=== PATIENT | male | born 1940 | race Caucasian/White ===

== ENCOUNTER 2017-01-20 22:19 | Emergency (ER) | payer MEDICARE ==
[~2017-01-20] VITALS: Ht 170.2 cm; Wt 48.2 kg
[~2017-01-20 22:19] MED LIST: ALBU8.5H5 INH; ASPI-496 PO; ATOR40TA PO; CARV3.1212 PO; CEFD300C37 PO; CLOP75TA22 PO; DOXY100T PO; FLUT1DIS IH; FURO20TA3 PO; LEVO750T26 PO; MAGN500C PO; NICO1PAT4 TD; NICO1PAT5 TD; OXYC-302 PO; POTA10TA11 PO; POTA20TA6 PO; PRED50TA PO; PRED5TAB PO
[2017-01-20] MEDS ORDERED: SODIUM CHLORIDE 0.9% 1,000 ML IV ONE (22:24)
[2017-01-20] MEDS ORDERED: ALBUTEROL/IPRATROPIUM 2.5MG/0.5MG, 3 ML NPPB ONE (22:30)
[2017-01-20] MEDS ORDERED: ALBUTEROL/IPRATROPIUM 2.5MG/0.5MG, 3 ML NPPB PRN (22:30)
[2017-01-20] MEDS ORDERED: methylPREDNISolone SOD SUCC 125 MG/2 ML IVP ONE (22:30)
[2017-01-20] MEDS ORDERED: SODIUM CHLORIDE FLUSH 10ML SYR IVF ONE (22:30)
[2017-01-20] MEDS ORDERED: ALBUTEROL/IPRATROPIUM 2.5MG/0.5MG, 3 ML ONE (22:44)
[2017-01-20] MEDS ORDERED: methylPREDNISolone SOD SUCC 125 MG/2 ML ONE (22:56)
[2017-01-20 23:14] LABS: ASPARTATE AMINO TRANSFERASE 21 U/L (15-37); BLOOD UREA NITROGEN 27 mg/dL (7-18)
[2017-01-20 23:22] LABS: IS PT STATUS REG ER OR PRE ER? YES
[2017-01-20] MEDS ORDERED: ALBU6.7H PO (23:40)
[2017-01-20] MEDS ORDERED: MAGN400T36 PO (23:40)
[2017-01-21 00:31] VITALS: BP 129/71
== END 2017-01-21 00:34 | disposition home or self-care (01) ==
LOC: ED 23:54
DX: J44.1 Chronic obstructive pulmonary disease with (acute) exacerbation (principal); I25.10 Atherosclerotic heart disease of native coronary artery without angina pectoris; F17.200 Nicotine dependence, unspecified, uncomplicated
CPT/HCPCS: 36415; 71010; 80053; 83880; 84484; 85025; 93005; 94640; 96361; 96374; 99285; J2930; J7030; J7620

== ENCOUNTER 2017-04-04 01:36 | Inpatient (IN) | payer MEDICARE ==
[~2017-04-04] VITALS: Ht 170.2 cm; Wt 52.3 kg
[~2017-04-04 01:36] MED LIST changes: +ALBU6.7H PO; -CLOP75TA22 PO; +CLOP75TA52 PO; +MAGN400T36 PO; -MAGN500C PO; +MAGN500C9 PO; +NICO1PAT13 TD; +NICO1PAT16 TD; -NICO1PAT4 TD; -NICO1PAT5 TD
[2017-04-04] MEDS ORDERED: methylPREDNISolone SOD SUCC 125 MG/2 ML ONE (01:56)
[2017-04-04] MEDS ORDERED: ALBUTEROL SULFATE 2.5 MG/3 ML NPPB ONE (02:00)
[2017-04-04] MEDS ORDERED: methylPREDNISolone SOD SUCC 125 MG/2 ML IVP ONE (02:00)
[2017-04-04] MEDS ORDERED: SODIUM CHLORIDE 0.9% 1,000ML IVBOLUS ONE (02:00)
[2017-04-04 02:10] LABS: HEMATOCRIT 43.9 % (39.2-51.8); HEMOGLOBIN 14.6 g/dL (13.7-18.0); WHITE BLOOD COUNT 9.8 x10^3/uL (3.4-10)
[2017-04-04] MEDS ORDERED: ALBUTEROL SULFATE 2.5 MG/3 ML ONE ×3 (02:13→10:03)
[2017-04-04 02:23] LABS: BLOOD UREA NITROGEN 17 mg/dL (7-18)
[2017-04-04 02:30] LABS: IS PT STATUS REG ER OR PRE ER? YES
[2017-04-04] MEDS ORDERED: SODIUM CHLORIDE 0.9% 1,000 ML IV ONE (03:02)
[2017-04-04] MEDS ORDERED: CARV3.122 PO (03:13)
[2017-04-04] MEDS ORDERED: ONDANSETRON 2MG/ML, 2ML IVPush PRN ×2 (03:30→06:00)
[2017-04-04] MEDS ORDERED: ALBUTEROL SULFATE 2.5 MG/3 ML NPPB PRN (04:00)
[2017-04-04 04:13] VITALS: BP 138/62
[2017-04-04] MEDS ORDERED: NS + 20MEQ KCL 1,000 ML IV SCH (05:38)
[2017-04-04] MEDS ORDERED: POLYETHYLENE GLYCOL 17 GM PACKET PO PRN (06:00)
[2017-04-04] MEDS ORDERED: CEFTRIAXONE PMX 1GM/50ML 50 ML IV SCH (06:00)
[2017-04-04] MEDS ORDERED: morphine SULFATE 10 MG/ML, 1ML IVPush PRN (06:00)
[2017-04-04] MEDS ORDERED: TEMPLATE NON-FORMULARY MED. (Albuterol Sulfate** (Albuterol Sulfate Hfa**) 2 PUFF(S)) INH PRN (06:00)
[2017-04-04] MEDS ORDERED: methylPREDNISolone SOD SUCC 125 MG/2 ML IVPush SCH (06:00)
[2017-04-04] MEDS ORDERED: DOCUSATE 100 MG CAPSULE PO PRN (06:00)
[2017-04-04] MEDS ORDERED: GUAIFENESIN/DM 200-20MG, 10ML UDC PO PRN (06:00)
[2017-04-04] MEDS ORDERED: ALBUTEROL SULFATE PO SCH (06:00)
[2017-04-04] MEDS ORDERED: LORazepam 1MG TABLET PO PRN (06:00)
[2017-04-04] MEDS ORDERED: DOXYCYCLINE 100 MG in DEXTROSE 5% 250 ML IV SCH (06:00)
[2017-04-04] MEDS ORDERED: ACETAMINOPHEN 325 MG TABLET PO PRN (06:00)
[2017-04-04] MEDS ORDERED: HYDROcodone/APAP 5/325 TABLET PO PRN (06:00)
[2017-04-04] MEDS: NICOTINE 21 MG/24 HR PATCH.TD24 TD SCH (06:28)
[2017-04-04] MEDS: ENOXAPARIN 40 MG/0.4 ML SQ SCH (06:29)
[2017-04-04] MEDS ORDERED: ALBUTEROL SULFATE 2.5 MG/3 ML NPPB SCH ×2 (07:00→11:00)
[2017-04-04 08:34] VITALS: BP 116/67
[2017-04-04] MEDS: SENNA/DOCUSATE TABLET PO SCH (09:00)
[2017-04-04] MEDS: ALBUTEROL SULFATE 2.5 MG/3 ML NPPB SCH ×5 (10:00→22:59)
[2017-04-04] MEDS: MAGNESIUM OXIDE 400 MG TABLET PO SCH (10:15)
[2017-04-04] MEDS: ASPIRIN 81 MG TABLET EC PO SCH (10:16)
[2017-04-04] MEDS: CARVEDILOL 3.125 MG TABLET PO SCH ×2 (10:16→21:00)
[2017-04-04 14:17] VITALS: BP 123/71
[2017-04-04 20:20] VITALS: BP 107/49
[2017-04-05 01:45] VITALS: BP 122/60
[2017-04-05] MEDS: ALBUTEROL SULFATE 2.5 MG/3 ML NPPB SCH ×3 (03:30→10:42)
[2017-04-05 05:39] LABS: BLOOD UREA NITROGEN 15 mg/dL (7-18)
[2017-04-05 06:49] VITALS: BP 116/60
[2017-04-05] MEDS ORDERED: SODIUM CHLORIDE NASAL SPRAY 45ML BOTTLE NAS PRN ×2 (07:30→14:30)
[2017-04-05] MEDS ORDERED: DOXY100T PO (07:51)
[2017-04-05] MEDS ORDERED: PRED20TA PO (07:51)
[2017-04-05] MEDS: ENOXAPARIN 40 MG/0.4 ML SQ SCH (08:00)
[2017-04-05] MEDS ORDERED: AZITHROMYCIN 500 MG TABLET PO SCH (09:00)
[2017-04-05] MEDS ORDERED: DOXYCYCLINE 100MG TABLET PO SCH (09:00)
[2017-04-05] MEDS: SENNA/DOCUSATE TABLET PO SCH (09:00)
[2017-04-05] MEDS: ASPIRIN 81 MG TABLET EC PO SCH (11:45)
[2017-04-05] MEDS: NICOTINE 21 MG/24 HR PATCH.TD24 TD SCH (11:45)
[2017-04-05] MEDS: CARVEDILOL 3.125 MG TABLET PO SCH (11:46)
[2017-04-05] MEDS: MAGNESIUM OXIDE 400 MG TABLET PO SCH (11:46)
[2017-04-05 13:11] VITALS: BP 120/53
[2017-04-05] MEDS ORDERED: DOCUSATE 100 MG CAPSULE PO PRN (14:30)
[2017-04-05] MEDS ORDERED: GUAIFENESIN/DM 200-20MG, 10ML UDC PO PRN (14:30)
[2017-04-05] MEDS ORDERED: ACETAMINOPHEN 325 MG TABLET PO PRN (14:30)
[2017-04-05] MEDS ORDERED: POLYETHYLENE GLYCOL 17 GM PACKET PO PRN (14:30)
[2017-04-05] MEDS ORDERED: ONDANSETRON 2MG/ML, 2ML IVPush PRN (14:30)
== END 2017-04-05 14:45 | disposition home health service (06) | DRG 189 ==
LOC: ED 01:50 → EDIP 03:02 → 4WST 05:30
PROVIDERS: ADMIT Family Medicine; ATTEND Internal Medicine
DX: J96.20 Acute and chronic respiratory failure, unspecified whether with hypoxia or hypercapnia (principal); I11.0 Hypertensive heart disease with heart failure; I50.32 Chronic diastolic (congestive) heart failure; Z99.81 Dependence on supplemental oxygen; J44.1 Chronic obstructive pulmonary disease with (acute) exacerbation; I35.1 Nonrheumatic aortic (valve) insufficiency; E78.5 Hyperlipidemia, unspecified; F17.200 Nicotine dependence, unspecified, uncomplicated; I25.10 Atherosclerotic heart disease of native coronary artery without angina pectoris; I37.1 Nonrheumatic pulmonary valve insufficiency; Z66 Do not resuscitate; I25.2 Old myocardial infarction; Z95.5 Presence of coronary angioplasty implant and graft
CPT/HCPCS: 36415; 71010; 80048; 82040; 83880; 84484; 85025; 93005; 94640; 96361; 96374; J0696; J1650; J3480; J7060; J7613; J2930; J7030; J7512

== ENCOUNTER 2017-10-01 00:25 | Emergency (ER) | payer MEDICARE ==
[~2017-10-01] VITALS: Ht 170.2 cm; Wt 51.0 kg
[~2017-10-01 00:25] MED LIST changes: +CARV3.122 PO; +NICO-486 TD; +NICO-487 TD; -NICO1PAT13 TD; -NICO1PAT16 TD; +PRED20TA PO
[2017-10-01] MEDS ORDERED: methylPREDNISolone SOD SUCC 125 MG/2 ML ONE (00:55)
[2017-10-01] MEDS ORDERED: ALBUTEROL/IPRATROPIUM 2.5MG/0.5MG, 3 ML NPPB ONE (01:00)
[2017-10-01] MEDS ORDERED: SODIUM CHLORIDE FLUSH 10ML SYR IVF ONE (01:00)
[2017-10-01] MEDS ORDERED: methylPREDNISolone SOD SUCC 125 MG/2 ML IVP ONE (01:00)
[2017-10-01] MEDS ORDERED: ALBUTEROL/IPRATROPIUM 2.5MG/0.5MG, 3 ML ONE (01:02)
[2017-10-01 01:41] LABS: BASOPHILS # (AUTO) 0.07 x10^3/uL (0-0.1); BASOPHILS % (AUTO) 1 % (0-1); EOSINOPHILS # (AUTO) 0.52 x10^3/uL (0-0.4); EOSINOPHILS % (AUTO) 6 % (1-7); LYMPHOCYTES # (AUTO) 2.27 x10^3/uL (1-3.4); LYMPHOCYTES % (AUTO) 26 % (22-44); MD NO; MEAN CORPUSCULAR HEMOGLOBIN 30.8 pg (27.5-34.5); MEAN CORPUSCULAR HGB CONC 33.2 g/dL (33.2-36.2); MEAN CORPUSCULAR VOLUME 92.7 fL (81-97); MEAN PLATELET VOLUME 8.4 fL (7.4-10.4); MONOCYTES % (AUTO) 11 % (2-9); NEUTROPHILS # (AUTO) 4.99 x10^3/uL (1.8-6.8); NEUTROPHILS % (AUTO) 56 % (42-75); PLATELET COUNT 200 x10^3/uL (130-400); RED BLOOD COUNT 4.77 x10^6/uL (4.38-5.82); RED CELL DISTRIBUTION WIDTH 13.7 % (9.4-14.8)
[2017-10-01 01:51] LABS: ALBUMIN 3.8 g/dL (3.4-5.0); ANION GAP 4 mmol/L (5-15); CALCIUM 8.8 mg/dL (8.5-10.1); CHLORIDE 105 mmol/L (98-107); CREATININE 0.94 mg/dL (0.7-1.3)
[2017-10-01 02:00] VITALS: BP_DIAS 60
[2017-10-01 02:50] VITALS: BP_SYST 134
== END 2017-10-01 02:52 | disposition home or self-care (01) ==
LOC: ED 02:06
DX: J43.9 Emphysema, unspecified (principal); I25.10 Atherosclerotic heart disease of native coronary artery without angina pectoris; F17.200 Nicotine dependence, unspecified, uncomplicated
CPT/HCPCS: 36415; 71045; 80048; 82040; 85025; 93005; 94640; 96374; 99285; J2930; J7620

== ENCOUNTER 2017-11-02 16:33 | Emergency (ER) | payer MEDICARE ==
[~2017-11-02] VITALS: Ht 170.2 cm; Wt 52.2 kg
[2017-11-02] MEDS ORDERED: SODIUM CHLORIDE FLUSH 10ML SYR IVF ONE (17:00)
[2017-11-02 17:28] LABS: MD YES; MEAN CORPUSCULAR HEMOGLOBIN 31.1 pg (27.5-34.5); MEAN CORPUSCULAR HGB CONC 33.9 g/dL (33.2-36.2); MEAN CORPUSCULAR VOLUME 91.6 fL (81-97); MEAN PLATELET VOLUME 8.4 fL (7.4-10.4); PLATELET COUNT 242 x10^3/uL (130-400); RED BLOOD COUNT 4.63 x10^6/uL (4.38-5.82); RED CELL DISTRIBUTION WIDTH 14.2 % (9.4-14.8)
[2017-11-02 17:33] LABS: ALBUMIN 3.4 g/dL (3.4-5.0); ANION GAP 6 mmol/L (5-15); CALCIUM 8.4 mg/dL (8.5-10.1); CHLORIDE 105 mmol/L (98-107)
[2017-11-02 17:37] LABS: TROPONIN I < 0.015 ng/mL (0.000-0.045)
[2017-11-02 17:48] LABS: EOS#(MANUAL) 0.68 x10^3/uL (0.0-0.4); EOS% (MANUAL) 11 % (1-7); LYMPH#(MANUAL) 1.55 x10^3/uL (1-3.4); LYMPHS% (MANUAL) 25 % (22-44); MONOS#(MANUAL) 0.68 x10^3/uL (0.3-2.7); MONOS% (MANUAL) 11 % (2-9); SEG#(MANUAL) 3.29 x10^3/uL (1.8-6.8); SEGS% (MANUAL) 53 % (42-75)
[2017-11-02 17:49] LABS: <PLATELET ESTIMATE> ADEQUATE; <PLT MORPHOLOGY> NORMAL PLT MORPH; <RBC MORPHOLOGY> NORMAL
[2017-11-02 18:49] VITALS: BP 136/70
== END 2017-11-02 18:52 | disposition home or self-care (01) ==
LOC: ED 17:36
DX: J96.11 Chronic respiratory failure with hypoxia (principal); J43.9 Emphysema, unspecified; F17.200 Nicotine dependence, unspecified, uncomplicated; I25.10 Atherosclerotic heart disease of native coronary artery without angina pectoris
CPT/HCPCS: 36415; 71045; 80048; 82040; 83880; 84484; 85025; 93005; 99285; J7512

== ENCOUNTER 2017-11-09 23:42 | Emergency (ER) | payer MEDICARE ==
[~2017-11-09] VITALS: Ht 170.2 cm; Wt 52.0 kg
[2017-11-10 01:53] VITALS: BP 109/61
== END 2017-11-10 01:56 | disposition home or self-care (01) ==
LOC: ED 11-10 01:35
DX: J44.1 Chronic obstructive pulmonary disease with (acute) exacerbation (principal); F17.210 Nicotine dependence, cigarettes, uncomplicated; I25.10 Atherosclerotic heart disease of native coronary artery without angina pectoris; Z99.81 Dependence on supplemental oxygen
CPT/HCPCS: 71045; 93005; 99284

== ENCOUNTER 2018-01-09 22:47 | Inpatient (IN) | payer MEDICARE ==
[~2018-01-09] VITALS: Ht 170.2 cm; Wt 50.9 kg
[~2018-01-09 22:47] MED LIST changes: +ALBU2.5V NPPB; +ALBUTEROL SULFATE INH; +ALPR-475 PO; +FLUT1BLS INH; +PRED10TA PO; +TIOT18CA INH
[2018-01-09] MEDS ORDERED: ALBUTEROL/IPRATROPIUM 2.5MG/0.5MG, 3 ML ONE (23:01)
[2018-01-09] MEDS ORDERED: methylPREDNISolone SOD SUCC 125 MG/2 ML ONE (23:18)
[2018-01-09 23:29] LABS: BASOPHILS % (AUTO) 1 % (0-1); EOSINOPHILS # (AUTO) 0.67 x10^3/uL (0-0.4); EOSINOPHILS % (AUTO) 8 % (1-7); LYMPHOCYTES # (AUTO) 1.85 x10^3/uL (1-3.4); LYMPHOCYTES % (AUTO) 23 % (22-44); MD NO; MEAN CORPUSCULAR HGB CONC 32.8 g/dL (33.2-36.2); MEAN CORPUSCULAR VOLUME 91.4 fL (81-97); MEAN PLATELET VOLUME 7.9 fL (7.4-10.4); MONOCYTES # (AUTO) 0.86 x10^3/uL (0.2-0.8); MONOCYTES % (AUTO) 11 % (2-9); NEUTROPHILS # (AUTO) 4.52 x10^3/uL (1.8-6.8); NEUTROPHILS % (AUTO) 57 % (42-75); PLATELET COUNT 251 x10^3/uL (130-400); RED BLOOD COUNT 4.29 x10^6/uL (4.38-5.82); RED CELL DISTRIBUTION WIDTH 14.1 % (9.4-14.8)
[2018-01-09] MEDS ORDERED: ALBUTEROL 0.5%, 20ML NPPB SCH (23:30)
[2018-01-09] MEDS ORDERED: ALBUTEROL/IPRATROPIUM 2.5MG/0.5MG, 3 ML NPPB SCH (23:30)
[2018-01-09] MEDS ORDERED: methylPREDNISolone SOD SUCC 125 MG/2 ML IVP ONE (23:30)
[2018-01-09 23:42] LABS: ALBUMIN 3.4 g/dL (3.4-5.0); ANION GAP 7 mmol/L (5-15); CALCIUM 8.7 mg/dL (8.5-10.1); CHLORIDE 105 mmol/L (98-107); CREATININE 1.02 mg/dL (0.7-1.3)
[2018-01-09 23:46] LABS: TROPONIN I < 0.015 ng/mL (0.000-0.045)
[2018-01-10] MEDS ORDERED: OMNIPAQUE 350 MG/ML, 100ML BOTTLE ONE (00:55)
[2018-01-10] MEDS ORDERED: ALBUTEROL SULFATE 2.5 MG/3 ML NPPB ONE (01:00)
[2018-01-10] MEDS ORDERED: ALBUTEROL/IPRATROPIUM 2.5MG/0.5MG, 3 ML ONE (01:01)
[2018-01-10] MEDS ORDERED: ONDANSETRON 2MG/ML, 2ML IVPush PRN ×2 (02:30→08:00)
[2018-01-10] MEDS ORDERED: ENALAPRILAT 1.25 MG/ML, 2ML IVPush PRN (08:00)
[2018-01-10] MEDS ORDERED: morphine SULFATE 10 MG/ML, 1ML IVPush PRN (08:00)
[2018-01-10] MEDS ORDERED: PROMETHAZINE 25 MG/ML, 1ML IM PRN (08:00)
[2018-01-10] MEDS ORDERED: ONDANSETRON ODT 4 MG PO PRN (08:00)
[2018-01-10] MEDS ORDERED: DOCUSATE 100 MG CAPSULE PO PRN (08:00)
[2018-01-10] MEDS ORDERED: OXYcodone IR 5MG TABLET PO PRN (08:00)
[2018-01-10] MEDS ORDERED: ACETAMINOPHEN 325 MG TABLET PO PRN (08:00)
[2018-01-10] MEDS ORDERED: BISACODYL 10 MG SUPP PR PRN (08:00)
[2018-01-10] MEDS ORDERED: POLYETHYLENE GLYCOL 17 GM PACKET PO PRN (08:00)
[2018-01-10] MEDS ORDERED: hydrALAzine 20 MG/ML, 1ML IVPush PRN (08:00)
[2018-01-10] MEDS ORDERED: ALBUTEROL/IPRATROPIUM 2.5MG/0.5MG, 3 ML NPPB SCH (08:00)
[2018-01-10 08:42] LABS: HEMOGLOBIN A1C 5.9 % (4.2-6.3)
[2018-01-10 08:46] LABS: FREE T4 (FREE THYROXINE) 1.08 ng/dL (0.76-1.46); THYROID STIMULATING HORMONE 0.354 mIU/L (0.358-3.740)
[2018-01-10] MEDS ORDERED: ENOXAPARIN 40 MG/0.4 ML ONE (09:39)
[2018-01-10] MEDS ORDERED: ASPIRIN 81 MG TABLET EC ONE (09:40)
[2018-01-10] MEDS ORDERED: methylPREDNISolone SOD SUCC 125 MG/2 ML ONE (09:40)
[2018-01-10] MEDS ORDERED: MAGNESIUM OXIDE 400 MG TABLET ONE (09:40)
[2018-01-10] MEDS ORDERED: DOXYCYCLINE 100MG TABLET ONE (09:40)
[2018-01-10] MEDS ORDERED: CARVEDILOL 3.125 MG TABLET ONE (09:40)
[2018-01-10] MEDS ORDERED: GUAIFENESIN 200 MG TABLET ONE (09:40)
[2018-01-10] MEDS ORDERED: CEFTRIAXONE PMX 2GM/50ML 50 ML ONE (09:41)
[2018-01-10] MEDS: CARVEDILOL 3.125 MG TABLET PO SCH ×2 (10:07→17:32)
[2018-01-10] MEDS: MAGNESIUM OXIDE 400 MG TABLET PO SCH (10:07)
[2018-01-10] MEDS: DOXYCYCLINE 100MG TABLET PO SCH ×2 (10:07→21:08)
[2018-01-10] MEDS: CEFTRIAXONE PMX 2GM/50ML 50 ML IV SCH (10:07)
[2018-01-10] MEDS: GUAIFENESIN 200 MG TABLET PO SCH ×2 (10:07→21:08)
[2018-01-10] MEDS: ASPIRIN 81 MG TABLET EC PO SCH (10:08)
[2018-01-10] MEDS: ENOXAPARIN 40 MG/0.4 ML SQ SCH (10:08)
[2018-01-10] MEDS: methylPREDNISolone SOD SUCC 125 MG/2 ML IVPush SCH ×3 (10:08→21:08)
[2018-01-10] MEDS ORDERED: VARE1TAB21 PO (10:11)
[2018-01-10 11:45] VITALS: BP 106/54
[2018-01-10 12:47] VITALS: BP 106/54
[2018-01-10] MEDS: FLUTICASONE/VILANTEROL 200-25MCG/INH INH SCH (13:30)
[2018-01-10] MEDS: ALBUTEROL/IPRATROPIUM 2.5MG/0.5MG, 3 ML NPPB SCH ×3 (13:35→19:16)
[2018-01-10 14:00] VITALS: BP 108/64
[2018-01-10 17:01] LABS: MICROSCOPIC NOT IND
[2018-01-10 17:18] LABS: CULTURE INDICATED? NO
[2018-01-10 20:31] VITALS: BP 106/53
[2018-01-10] MEDS ORDERED: ATORVASTATIN 40 MG TABLET PO SCH (21:00)
[2018-01-11 00:36] VITALS: BP 110/47
[2018-01-11] MEDS: methylPREDNISolone SOD SUCC 125 MG/2 ML IVPush SCH ×3 (02:57→14:00)
[2018-01-11 05:50] LABS: ALANINE AMINOTRANSFERASE 15 U/L (12-78); ALBUMIN 2.9 g/dL (3.4-5.0); ANION GAP 5 mmol/L (5-15); CALCIUM 8.2 mg/dL (8.5-10.1); CHLORIDE 107 mmol/L (98-107)
[2018-01-11 05:51] LABS: BASOPHILS # (AUTO) 0.01 x10^3/uL (0-0.1); BASOPHILS % (AUTO) 0 % (0-1); EOSINOPHILS % (AUTO) 0 % (1-7); LYMPHOCYTES # (AUTO) 0.66 x10^3/uL (1-3.4); LYMPHOCYTES % (AUTO) 5 % (22-44); MD NO; MEAN CORPUSCULAR HEMOGLOBIN 30.2 pg (27.5-34.5); MEAN CORPUSCULAR HGB CONC 33.6 g/dL (33.2-36.2); MEAN PLATELET VOLUME 8.2 fL (7.4-10.4); MONOCYTES # (AUTO) 0.57 x10^3/uL (0.2-0.8); MONOCYTES % (AUTO) 5 % (2-9); NEUTROPHILS # (AUTO) 11.18 x10^3/uL (1.8-6.8); NEUTROPHILS % (AUTO) 90 % (42-75); PLATELET COUNT 237 x10^3/uL (130-400); RED BLOOD COUNT 3.82 x10^6/uL (4.38-5.82); RED CELL DISTRIBUTION WIDTH 14.5 % (9.4-14.8)
[2018-01-11 05:53] LABS: ALKALINE PHOSPHATASE 74 U/L (45-117); BILIRUBIN,TOTAL 0.3 mg/dL (0.2-1.0); CHOL/HDL RATIO 2.4; CHOLESTEROL, TOTAL 142 mg/dL (140-239); CREATININE 0.83 mg/dL (0.7-1.3); HDL CHOL % 42 % (26-37); HDL CHOLESTEROL (DIRECT) 59 mg/dL (40-60); LDL CHOLESTEROL,CALCULATED 71 mg/dL (54-169); LDL/HDL RATIO 1.2 (0.5-3.0); TRIGLYCERIDES 59 mg/dL (50-200); VLDL CHOLESTEROL 12 mg/dL (0-25)
[2018-01-11] MEDS: CARVEDILOL 3.125 MG TABLET PO SCH (06:19)
[2018-01-11] MEDS: ALBUTEROL/IPRATROPIUM 2.5MG/0.5MG, 3 ML NPPB SCH ×2 (06:55→11:46)
[2018-01-11 07:13] VITALS: BP 114/53
[2018-01-11] MEDS: ENOXAPARIN 40 MG/0.4 ML SQ SCH (08:00)
[2018-01-11] MEDS: CEFTRIAXONE PMX 2GM/50ML 50 ML IV SCH (09:27)
[2018-01-11] MEDS: ASPIRIN 81 MG TABLET EC PO SCH (09:27)
[2018-01-11] MEDS: MAGNESIUM OXIDE 400 MG TABLET PO SCH (09:27)
[2018-01-11] MEDS: GUAIFENESIN 200 MG TABLET PO SCH (09:27)
[2018-01-11] MEDS: DOXYCYCLINE 100MG TABLET PO SCH (09:27)
[2018-01-11] MEDS: FLUTICASONE/VILANTEROL 200-25MCG/INH INH SCH (10:46)
[2018-01-11] MEDS ORDERED: IPRA3AMP NPPB (13:13)
[2018-01-11] MEDS ORDERED: FLUT1BLS INH (13:13)
[2018-01-11] MEDS ORDERED: PRED5TAB PO (13:13)
[2018-01-11] MEDS ORDERED: CEFD300C37 PO (13:13)
[2018-01-11] MEDS ORDERED: DOXY100T PO (13:13)
[2018-01-11 14:07] VITALS: BP 109/57
== END 2018-01-11 15:12 | disposition home or self-care (01) | DRG 189 ==
LOC: ED 01-10 00:06 → EDIP 01-10 02:27 → 4EST 01-10 12:21
PROVIDERS: ADMIT Internal Medicine; ATTEND Internal Medicine
DX: J96.21 Acute and chronic respiratory failure with hypoxia (principal); J44.1 Chronic obstructive pulmonary disease with (acute) exacerbation; Z87.891 Personal history of nicotine dependence; Z95.5 Presence of coronary angioplasty implant and graft; I10 Essential (primary) hypertension; E78.5 Hyperlipidemia, unspecified; I25.10 Atherosclerotic heart disease of native coronary artery without angina pectoris; I25.2 Old myocardial infarction; Z99.81 Dependence on supplemental oxygen; Z87.01 Personal history of pneumonia (recurrent)
CPT/HCPCS: 36415; 71045; 71275; 80048; 80053; 80061; 81003; 82040; 83036; 83735; 84439; 84443; 84484; 85025; 87040; 87070; 87107; 87205; 93005; 93306; 94640; J0696; J7613; J7620; Q9967; J2930

== ENCOUNTER 2018-03-28 23:34 | Inpatient (IN) | payer MEDICARE ==
[~2018-03-28] VITALS: Ht 170.2 cm; Wt 49.2 kg
[~2018-03-28 23:34] MED LIST changes: +IPRA3AMP30 NPPB; +VARE1TAB21 PO
[2018-03-28 23:53] LABS: BASOPHILS # (AUTO) 0.06 x10^3/uL (0-0.1); BASOPHILS % (AUTO) 1 % (0-1); EOSINOPHILS # (AUTO) 0.39 x10^3/uL (0-0.4); EOSINOPHILS % (AUTO) 5 % (1-7); LYMPHOCYTES # (AUTO) 2.21 x10^3/uL (1-3.4); LYMPHOCYTES % (AUTO) 27 % (22-44); MD NO; MEAN CORPUSCULAR HEMOGLOBIN 29.7 pg (27.5-34.5); MEAN CORPUSCULAR HGB CONC 33.4 g/dL (33.2-36.2); MEAN CORPUSCULAR VOLUME 89.1 fL (81-97); MEAN PLATELET VOLUME 8.4 fL (7.4-10.4); MONOCYTES % (AUTO) 10 % (2-9); NEUTROPHILS # (AUTO) 4.71 x10^3/uL (1.8-6.8); NEUTROPHILS % (AUTO) 58 % (42-75); PLATELET COUNT 238 x10^3/uL (130-400); RED BLOOD COUNT 5.08 x10^6/uL (4.38-5.82); RED CELL DISTRIBUTION WIDTH 14.6 % (9.4-14.8)
[2018-03-29] MEDS ORDERED: methylPREDNISolone SOD SUCC 125 MG/2 ML IVP ONE
[2018-03-29] MEDS ORDERED: SODIUM CHLORIDE 0.9% 1,000ML IVBOLUS ONE
[2018-03-29] MEDS ORDERED: SODIUM CHLORIDE FLUSH 10ML SYR IVF ONE
[2018-03-29] MEDS ORDERED: ALBUTEROL 0.5%, 20ML NPPB SCH
[2018-03-29] MEDS ORDERED: methylPREDNISolone SOD SUCC 125 MG/2 ML ONE
[2018-03-29] MEDS ORDERED: IPRATROPIUM 0.5 MG/2.5 ML INHA NPPB SCH
[2018-03-29 00:04] LABS: ALANINE AMINOTRANSFERASE 19 U/L (12-78); ALBUMIN 3.8 g/dL (3.4-5.0); ANION GAP 0 mmol/L (5-15); CALCIUM 8.6 mg/dL (8.5-10.1); CHLORIDE 108 mmol/L (98-107); CREATININE 1.03 mg/dL (0.7-1.3)
[2018-03-29 00:08] LABS: ALKALINE PHOSPHATASE 71 U/L (45-117); BILIRUBIN,TOTAL 0.4 mg/dL (0.2-1.0); TOTAL PROTEIN 7.3 g/dL (6.4-8.2); TROPONIN I < 0.015 ng/mL (0.000-0.045)
[2018-03-29] MEDS ORDERED: HYDROcodone/APAP 5/325 TABLET PO PRN (00:30)
[2018-03-29] MEDS ORDERED: GUAIFENESIN/COD200MG-20MG/10ML LIQUID PO PRN (00:30)
[2018-03-29] MEDS: methylPREDNISolone SOD SUCC 125 MG/2 ML IVPush SCH ×3 (00:30→17:05)
[2018-03-29] MEDS ORDERED: ONDANSETRON 2MG/ML, 2ML IVPush PRN (00:30)
[2018-03-29] MEDS ORDERED: CEFTRIAXONE PMX 1GM/50ML 50 ML IV SCH (00:30)
[2018-03-29] MEDS ORDERED: CEFTRIAXONE PMX 1GM/50ML 50 ML ONE (00:30)
[2018-03-29] MEDS ORDERED: LORazepam 1MG TABLET PO PRN (00:30)
[2018-03-29] MEDS ORDERED: ACETAMINOPHEN 325 MG TABLET PO PRN (00:30)
[2018-03-29] MEDS ORDERED: POLYETHYLENE GLYCOL 17 GM PACKET PO PRN (00:30)
[2018-03-29] MEDS ORDERED: DOCUSATE 100 MG CAPSULE PO PRN (00:30)
[2018-03-29] MEDS ORDERED: ALBUTEROL SULFATE INH PRN (00:30)
[2018-03-29] MEDS ORDERED: morphine SULFATE 10 MG/ML, 1ML IVPush PRN (00:30)
[2018-03-29] MEDS: DOXYCYCLINE 100 MG in DEXTROSE 5% 250 ML IV SCH ×2 (01:08→14:03)
[2018-03-29] MEDS ORDERED: ALBUTEROL/IPRATROPIUM 2.5MG/0.5MG, 3 ML NPPB PRN (02:00)
[2018-03-29 02:16] VITALS: BP 138/67
[2018-03-29] MEDS: CEFTRIAXONE 1,000 MG in SODIUM CHLORIDE 0.9% 50 ML IVPB SCH (02:30)
[2018-03-29] MEDS: ALBUTEROL/IPRATROPIUM 2.5MG/0.5MG, 3 ML NPPB SCH ×6 (03:00→22:22)
[2018-03-29] MEDS: ENOXAPARIN 40 MG/0.4 ML SQ SCH (03:16)
[2018-03-29] MEDS ORDERED: [UNRECOGNIZED DRUG - OTHER] INH (03:36)
[2018-03-29] MEDS: CARVEDILOL 3.125 MG TABLET PO SCH ×2 (06:25→17:05)
[2018-03-29 06:29] VITALS: BP 119/64
[2018-03-29] MEDS ORDERED: ALBUTEROL/IPRATROPIUM 2.5MG/0.5MG, 3 ML NPPB SCH (07:00)
[2018-03-29] MEDS: SENNA/DOCUSATE TABLET PO SCH (08:56)
[2018-03-29] MEDS: MAGNESIUM OXIDE 400 MG TABLET PO SCH (08:56)
[2018-03-29] MEDS: ASPIRIN 81 MG TABLET CHEW PO SCH (09:00)
[2018-03-29] MEDS: SODIUM CHLORIDE FLUSH 10ML SYR IVF SCH ×2 (09:00→21:29)
[2018-03-29 14:13] VITALS: BP 117/62
[2018-03-29 18:33] VITALS: BP 111/52
[2018-03-29] MEDS ORDERED: ATORVASTATIN 40 MG TABLET PO SCH (21:00)
[2018-03-30] MEDS: ENOXAPARIN 40 MG/0.4 ML SQ SCH (00:01)
[2018-03-30 01:00] VITALS: BP 117/59
[2018-03-30] MEDS: methylPREDNISolone SOD SUCC 125 MG/2 ML IVPush SCH ×2 (01:06→07:46)
[2018-03-30] MEDS: DOXYCYCLINE 100 MG in DEXTROSE 5% 250 ML IV SCH (01:06)
[2018-03-30] MEDS: ALBUTEROL/IPRATROPIUM 2.5MG/0.5MG, 3 ML NPPB SCH ×2 (02:30→07:25)
[2018-03-30] MEDS: CEFTRIAXONE 1,000 MG in SODIUM CHLORIDE 0.9% 50 ML IVPB SCH (02:45)
[2018-03-30 05:19] VITALS: BP 115/52
[2018-03-30] MEDS: CARVEDILOL 3.125 MG TABLET PO SCH (05:21)
[2018-03-30 05:34] LABS: ANION GAP 6 mmol/L (5-15); CALCIUM 8.5 mg/dL (8.5-10.1); CHLORIDE 107 mmol/L (98-107); CREATININE 0.83 mg/dL (0.7-1.3)
[2018-03-30] MEDS ORDERED: CEFD300C37 PO (07:17)
[2018-03-30] MEDS ORDERED: DOXY100T PO (07:17)
[2018-03-30] MEDS ORDERED: PRED20TA PO (07:17)
[2018-03-30 07:18] VITALS: BP 115/61
[2018-03-30] MEDS: SENNA/DOCUSATE TABLET PO SCH (07:26)
[2018-03-30] MEDS: MAGNESIUM OXIDE 400 MG TABLET PO SCH (07:26)
[2018-03-30] MEDS: ASPIRIN 81 MG TABLET CHEW PO SCH (07:46)
[2018-03-30] MEDS: SODIUM CHLORIDE FLUSH 10ML SYR IVF SCH (07:47)
== END 2018-03-30 09:44 | disposition home or self-care (01) | DRG 189 ==
LOC: SUATTDRO 03-29 00:16 → ED 03-29 00:27 → EDIP 03-29 00:53 → 5SO 03-29 02:07
PROVIDERS: ADMIT Family Medicine; ATTEND Family Medicine
PROC: 5A09357 Assistance with Respiratory Ventilation, Less than 24 Consecutive Hours, Continuous Positive Airway Pressure (ICD-10-PCS; principal; 2018-03-28)
DX: J96.21 Acute and chronic respiratory failure with hypoxia (principal); J44.1 Chronic obstructive pulmonary disease with (acute) exacerbation; I25.10 Atherosclerotic heart disease of native coronary artery without angina pectoris; I10 Essential (primary) hypertension; Z66 Do not resuscitate; E78.5 Hyperlipidemia, unspecified; Z99.81 Dependence on supplemental oxygen; Z91.14 Patient's other noncompliance with medication regimen; Z90.89 Acquired absence of other organs; Z95.5 Presence of coronary angioplasty implant and graft; Z82.49 Family history of ischemic heart disease and other diseases of the circulatory system; Z80.9 Family history of malignant neoplasm, unspecified; Z87.891 Personal history of nicotine dependence; I25.2 Old myocardial infarction
CPT/HCPCS: 36415; 36600; 71045; 80048; 80053; 82803; 83735; 83880; 84484; 85025; 87040; 93005; 94640; 94660; 96365; 96375; J0696; J7060; J7620; J2930; J7030

== ENCOUNTER 2018-05-20 23:18 | Emergency (ER) | payer MEDICARE ==
[~2018-05-20] VITALS: Ht 165.1 cm; Wt 65.0 kg
[~2018-05-20 23:18] MED LIST changes: +[UNRECOGNIZED DRUG - OTHER] INH
[2018-05-20] MEDS ORDERED: SODIUM CHLORIDE 0.9% 1,000 ML IV ONE (23:25)
[2018-05-20] MEDS ORDERED: ALBUTEROL/IPRATROPIUM 2.5MG/0.5MG, 3 ML NPPB ONE (23:30)
[2018-05-20] MEDS ORDERED: methylPREDNISolone SOD SUCC 125 MG/2 ML IVP ONE (23:30)
[2018-05-20] MEDS ORDERED: SODIUM CHLORIDE FLUSH 10ML SYR IVF ONE (23:30)
[2018-05-20] MEDS ORDERED: methylPREDNISolone SOD SUCC 125 MG/2 ML ONE (23:32)
[2018-05-20] MEDS ORDERED: ALBUTEROL/IPRATROPIUM 2.5MG/0.5MG, 3 ML ONE (23:37)
[2018-05-21 00:15] LABS: BASOPHILS # (AUTO) 0.07 x10^3/uL (0-0.1); BASOPHILS % (AUTO) 1 % (0-1); EOSINOPHILS # (AUTO) 0.61 x10^3/uL (0-0.4); EOSINOPHILS % (AUTO) 7 % (1-7); LYMPHOCYTES # (AUTO) 2.06 x10^3/uL (1-3.4); LYMPHOCYTES % (AUTO) 24 % (22-44); MD NO; MEAN CORPUSCULAR HEMOGLOBIN 30.1 pg (27.5-34.5); MEAN CORPUSCULAR HGB CONC 33.2 g/dL (33.2-36.2); MEAN CORPUSCULAR VOLUME 90.7 fL (81-97); MEAN PLATELET VOLUME 8.4 fL (7.4-10.4); MONOCYTES # (AUTO) 1.18 x10^3/uL (0.2-0.8); MONOCYTES % (AUTO) 14 % (2-9); NEUTROPHILS # (AUTO) 4.73 x10^3/uL (1.8-6.8); NEUTROPHILS % (AUTO) 55 % (42-75); PLATELET COUNT 249 x10^3/uL (130-400); RED CELL DISTRIBUTION WIDTH 14.8 % (9.4-14.8)
[2018-05-21 00:24] LABS: ALANINE AMINOTRANSFERASE 16 U/L (12-78); ALBUMIN 3.6 g/dL (3.4-5.0); ANION GAP 5 mmol/L (5-15); CALCIUM 9.4 mg/dL (8.5-10.1); CHLORIDE 107 mmol/L (98-107); CREATININE 0.97 mg/dL (0.7-1.3)
[2018-05-21 00:29] LABS: ALKALINE PHOSPHATASE 66 U/L (45-117); BILIRUBIN,TOTAL 0.4 mg/dL (0.2-1.0); TOTAL PROTEIN 6.9 g/dL (6.4-8.2); TROPONIN I < 0.015 ng/mL (0.000-0.045)
[2018-05-21] MEDS ORDERED: PLEASE ENTER HEIGHT AND WEIGHT MC SCH (00:30)
[2018-05-21 01:21] VITALS: BP 134/67
== END 2018-05-21 01:23 | disposition home or self-care (01) ==
LOC: ED 23:59
DX: J44.1 Chronic obstructive pulmonary disease with (acute) exacerbation (principal); I10 Essential (primary) hypertension; I25.2 Old myocardial infarction; I25.10 Atherosclerotic heart disease of native coronary artery without angina pectoris; J43.9 Emphysema, unspecified; Z87.01 Personal history of pneumonia (recurrent)
CPT/HCPCS: 36415; 71045; 80053; 83880; 84484; 85025; 87040; 93005; 94640; 96361; 96374; 99285; J2930; J7030; J7620

== ENCOUNTER 2018-06-06 22:49 | Inpatient (IN) | payer MEDICARE ==
[~2018-06-06] VITALS: Ht 170.2 cm; Wt 53.3 kg
[2018-06-06] MEDS ORDERED: methylPREDNISolone SOD SUCC 125 MG/2 ML ONE (22:59)
[2018-06-06] MEDS ORDERED: ALBUTEROL/IPRATROPIUM 2.5MG/0.5MG, 3 ML NPPB SCH (23:00)
[2018-06-06] MEDS ORDERED: SODIUM CHLORIDE FLUSH 10ML SYR IVF ONE (23:00)
[2018-06-06] MEDS ORDERED: methylPREDNISolone SOD SUCC 125 MG/2 ML IVP ONE (23:00)
[2018-06-06 23:28] LABS: BASOPHILS # (AUTO) 0.05 x10^3/uL (0-0.1); BASOPHILS % (AUTO) 0 % (0-1); EOSINOPHILS # (AUTO) 0.27 x10^3/uL (0-0.4); EOSINOPHILS % (AUTO) 2 % (1-7); LYMPHOCYTES % (AUTO) 15 % (22-44); MD NO; MEAN CORPUSCULAR HEMOGLOBIN 30.4 pg (27.5-34.5); MEAN CORPUSCULAR HGB CONC 33.5 g/dL (33.2-36.2); MEAN CORPUSCULAR VOLUME 90.6 fL (81-97); MONOCYTES # (AUTO) 0.95 x10^3/uL (0.2-0.8); MONOCYTES % (AUTO) 8 % (2-9); NEUTROPHILS # (AUTO) 8.41 x10^3/uL (1.8-6.8); NEUTROPHILS % (AUTO) 74 % (42-75); PLATELET COUNT 406 x10^3/uL (130-400); RED BLOOD COUNT 4.42 x10^6/uL (4.38-5.82); RED CELL DISTRIBUTION WIDTH 13.8 % (9.4-14.8)
[2018-06-06 23:35] LABS: INTERNATIONAL NORMALIZED RATIO 0.94 (0.93-1.1); PROTHROMBIN TIME 9.8 Seconds (9.6-11.5)
[2018-06-06 23:38] LABS: ALANINE AMINOTRANSFERASE 24 U/L (12-78); ALBUMIN 3.1 g/dL (3.4-5.0); ANION GAP 6 mmol/L (5-15); CALCIUM 8.6 mg/dL (8.5-10.1); CHLORIDE 108 mmol/L (98-107); CREATININE 0.85 mg/dL (0.7-1.3)
[2018-06-06 23:42] LABS: ALKALINE PHOSPHATASE 95 U/L (45-117); BILIRUBIN,TOTAL 0.4 mg/dL (0.2-1.0)
[2018-06-07] MEDS ORDERED: SODIUM CHLORIDE FLUSH 10ML SYR IVF PRN
[2018-06-07] MEDS ORDERED: SODIUM CHLORIDE 0.9% 1,000 ML IV SCH (00:11)
[2018-06-07] MEDS ORDERED: GUAIFENESIN/COD200MG-20MG/10ML LIQUID PO PRN (00:30)
[2018-06-07] MEDS ORDERED: DOCUSATE 100 MG CAPSULE PO PRN (00:30)
[2018-06-07] MEDS ORDERED: ALBUTEROL SULFATE 2.5 MG/3 ML HHN PRN (00:30)
[2018-06-07] MEDS ORDERED: ONDANSETRON 2MG/ML, 2ML IVPush PRN (00:30)
[2018-06-07] MEDS ORDERED: ACETAMINOPHEN 325 MG TABLET PO PRN (00:30)
[2018-06-07] MEDS ORDERED: POLYETHYLENE GLYCOL 17 GM PACKET PO PRN (00:30)
[2018-06-07] MEDS ORDERED: morphine SULFATE 10 MG/ML, 1ML IVPush PRN (00:30)
[2018-06-07] MEDS ORDERED: HYDROcodone/APAP 5/325 TABLET PO PRN (00:30)
[2018-06-07 01:15] VITALS: BP 143/69
[2018-06-07] MEDS: ENOXAPARIN 40 MG/0.4 ML SQ SCH (01:45)
[2018-06-07 05:33] LABS: TROPONIN I 0.338 ng/mL (0.000-0.045)
[2018-06-07 05:59] VITALS: BP 126/60
[2018-06-07] MEDS: ASPIRIN 325 MG TABLET EC PO SCH (06:07)
[2018-06-07] MEDS: CARVEDILOL 3.125 MG TABLET PO SCH ×2 (06:07→16:26)
[2018-06-07 06:47] VITALS: BP 114/62
[2018-06-07] MEDS ORDERED: ALBUTEROL/IPRATROPIUM 2.5MG/0.5MG, 3 ML NPPB SCH (07:00)
[2018-06-07] MEDS: ALBUTEROL/IPRATROPIUM 2.5MG/0.5MG, 3 ML NPPB SCH ×5 (07:15→22:45)
[2018-06-07] MEDS ORDERED: ASPIRIN 81 MG TABLET CHEW PO SCH (09:00)
[2018-06-07] MEDS: SENNA/DOCUSATE TABLET PO SCH (09:00)
[2018-06-07] MEDS: methylPREDNISolone SOD SUCC 125 MG/2 ML IVPush SCH ×3 (09:25→23:33)
[2018-06-07] MEDS: FAMOTIDINE 20 MG TABLET PO SCH ×2 (09:25→20:44)
[2018-06-07 12:21] VITALS: BP 131/62
[2018-06-07 13:28] LABS: TROPONIN I 0.316 ng/mL (0.000-0.045)
[2018-06-07 20:00] VITALS: BP 96/49
[2018-06-07 20:43] VITALS: BP 123/65
[2018-06-07] MEDS ORDERED: ATORVASTATIN 40 MG TABLET PO SCH (21:00)
[2018-06-08] MEDS: ENOXAPARIN 40 MG/0.4 ML SQ SCH (00:30)
[2018-06-08 02:00] VITALS: BP 120/55
[2018-06-08] MEDS: ALBUTEROL/IPRATROPIUM 2.5MG/0.5MG, 3 ML NPPB SCH ×2 (03:00→06:50)
[2018-06-08 05:00] LABS: BASOPHILS # (AUTO) 0.28 x10^3/uL (0-0.1); BASOPHILS % (AUTO) 3 % (0-1); EOSINOPHILS % (AUTO) 0 % (1-7); LYMPHOCYTES # (AUTO) 0.54 x10^3/uL (1-3.4); LYMPHOCYTES % (AUTO) 5 % (22-44); MD NO; MEAN CORPUSCULAR HEMOGLOBIN 29.8 pg (27.5-34.5); MEAN CORPUSCULAR HGB CONC 33.4 g/dL (33.2-36.2); MEAN CORPUSCULAR VOLUME 89.1 fL (81-97); MEAN PLATELET VOLUME 8.4 fL (7.4-10.4); MONOCYTES # (AUTO) 0.33 x10^3/uL (0.2-0.8); MONOCYTES % (AUTO) 3 % (2-9); NEUTROPHILS # (AUTO) 9.68 x10^3/uL (1.8-6.8); NEUTROPHILS % (AUTO) 89 % (42-75); PLATELET COUNT 295 x10^3/uL (130-400); RED BLOOD COUNT 3.64 x10^6/uL (4.38-5.82); RED CELL DISTRIBUTION WIDTH 13.7 % (9.4-14.8)
[2018-06-08 05:41] LABS: CHLORIDE 107 mmol/L (98-107); CREATININE 0.71 mg/dL (0.7-1.3)
[2018-06-08 05:44] LABS: ANION GAP 8 mmol/L (5-15); CALCIUM 8.4 mg/dL (8.5-10.1)
[2018-06-08] MEDS: methylPREDNISolone SOD SUCC 125 MG/2 ML IVPush SCH (06:41)
[2018-06-08] MEDS: CARVEDILOL 3.125 MG TABLET PO SCH (06:41)
[2018-06-08] MEDS: ASPIRIN 325 MG TABLET EC PO SCH (06:41)
[2018-06-08 07:32] VITALS: BP 129/56
[2018-06-08] MEDS: SENNA/DOCUSATE TABLET PO SCH (08:04)
[2018-06-08] MEDS: FAMOTIDINE 20 MG TABLET PO SCH (08:04)
== END 2018-06-08 10:50 | disposition home or self-care (01) | DRG 189 ==
LOC: ED 23:14 → SUATTDRO 23:55 → 4WST 06-07 00:14 → 5SO 06-07 01:03 → DCLOUNGE 06-08 10:38
PROVIDERS: ADMIT Family Medicine; ATTEND Family Medicine
PROC: 5A09357 Assistance with Respiratory Ventilation, Less than 24 Consecutive Hours, Continuous Positive Airway Pressure (ICD-10-PCS; principal; 2018-06-06)
DX: J96.21 Acute and chronic respiratory failure with hypoxia (principal); E43 Unspecified severe protein-calorie malnutrition; J44.1 Chronic obstructive pulmonary disease with (acute) exacerbation; E78.5 Hyperlipidemia, unspecified; I10 Essential (primary) hypertension; I25.10 Atherosclerotic heart disease of native coronary artery without angina pectoris; Z66 Do not resuscitate; I25.2 Old myocardial infarction; Z87.891 Personal history of nicotine dependence; Z95.5 Presence of coronary angioplasty implant and graft; Z99.81 Dependence on supplemental oxygen
CPT/HCPCS: 36415; 71045; 80048; 80053; 83605; 83880; 84484; 85025; 85610; 85730; 87040; 93005; 94640; 94660; 96374; 99291; G0378; J7620; J2930; J7030; J7512

== ENCOUNTER 2018-07-31 14:00 | Inpatient (IN) | payer MEDICARE ==
[~2018-07-31] VITALS: Ht 170.2 cm; Wt 54.3 kg
[~2018-07-31 14:00] MED LIST changes: +BUSP7.5T3 PO; +DOXY100T10 PO; +ETOMIDATE 40 MG/20 ML ONE; +PROPOFOL 10 MG/ML, 100ML IV ONE; +SUCCINYLCHOLINE 20 MG/ML, 10ML ONE
--- NOTE | 2018-07-31 14:00 | NUR ---
pt BIB [facility] from home c/o SOB that has been increasing for 2 weeks but much worse today and abd pain x2 weeks. upon admit pt is in respiratory distress. pt diaphoretic, pale, pursed lip breathing, tachypneic, sitting in tripod position gripping the siderails. pt speaking 1-2 word sentences and c/o "very bad" abdominal pain. no family at bedside. [facility] unable to get EKG [employer] D/T pt breathing pattern and anxiety. EKG at bedside but still unable to get read. Dr Cuello at bedside for evaluation. RT paged for breathing tx. Primary RN Marcus at bedside
[2018-07-31] MEDS ORDERED: LORazepam 2 MG/ML, 1ML ONE (14:04)
--- NOTE | 2018-07-31 14:05 | NUR ---
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
--- NOTE | 2018-07-31 14:06 | NUR ---
pt report that he has not had a flu vaccine but that he has recieved a pneumonia vaccine
[2018-07-31] MEDS ORDERED: methylPREDNISolone SOD SUCC 125 MG/2 ML ONE (14:25)
[2018-07-31] MEDS ORDERED: methylPREDNISolone SOD SUCC 125 MG/2 ML IVP ONE (14:30)
[2018-07-31] MEDS ORDERED: MAGNESIUM SULFATE 1 GM/2 ML IVPush ONE (14:30)
[2018-07-31] MEDS ORDERED: SODIUM CHLORIDE FLUSH 10ML SYR IVF ONE (14:30)
[2018-07-31] MEDS ORDERED: LORazepam 2 MG/ML, 1ML IVPush ONE (14:30)
[2018-07-31] MEDS: PROPOFOL 100 ML IV PRN ×2 (14:34→14:48)
[2018-07-31] MEDS ORDERED: ALBUTEROL SULFATE 2.5 MG/3 ML ONE (14:45)
--- NOTE | 2018-07-31 14:55 | NUR ---
RSI IN AGREEMENT OF PT WISHES STARTED AT 1417 PT INTUBATED TO 22 AT THE LIPS VENT SET AT 18 550 100% PEEP 5
--- NOTE | 2018-07-31 14:57 | NUR ---
MANE PLACED AT 1455 AND HAND RESTRAINTS IN PLACE
[2018-07-31] MEDS ORDERED: ALBUTEROL SULFATE 2.5 MG/3 ML NPPB ONE (15:00)
[2018-07-31 15:02] LABS: ALBUMIN 3.6 g/dL (3.4-5.0); ANION GAP 8 mmol/L (5-15); CALCIUM 8.1 mg/dL (8.5-10.1); CHLORIDE 95 mmol/L (98-107)
[2018-07-31] MEDS ORDERED: FENTANYL PF 100 MCG/2ML ONE (15:03)
[2018-07-31 15:07] LABS: BASOPHILS % (AUTO) 0 % (0-1); EOSINOPHILS # (AUTO) 0.11 x10^3/uL (0-0.4); EOSINOPHILS % (AUTO) 1 % (1-7); LYMPHOCYTES # (AUTO) 0.71 x10^3/uL (1-3.4); LYMPHOCYTES % (AUTO) 7 % (22-44); MD NO; MEAN CORPUSCULAR HEMOGLOBIN 30.3 pg (27.5-34.5); MEAN CORPUSCULAR HGB CONC 33.2 g/dL (33.2-36.2); MEAN CORPUSCULAR VOLUME 91.3 fL (81-97); MEAN PLATELET VOLUME 8.6 fL (7.4-10.4); MONOCYTES % (AUTO) 9 % (2-9); NEUTROPHILS # (AUTO) 8.31 x10^3/uL (1.8-6.8); NEUTROPHILS % (AUTO) 83 % (42-75); PLATELET COUNT 186 x10^3/uL (130-400); RED BLOOD COUNT 4.65 x10^6/uL (4.38-5.82); RED CELL DISTRIBUTION WIDTH 15.5 % (9.4-14.8)
[2018-07-31 15:08] LABS: ALANINE AMINOTRANSFERASE 23 U/L (12-78); ALKALINE PHOSPHATASE 74 U/L (45-117); BILIRUBIN,TOTAL 0.7 mg/dL (0.2-1.0); CREATININE 0.98 mg/dL (0.7-1.3); TOTAL PROTEIN 7.1 g/dL (6.4-8.2); TROPONIN I < 0.015 ng/mL (0.000-0.045)
[2018-07-31 15:14] LABS: INTERNATIONAL NORMALIZED RATIO 0.94 (0.93-1.1)
--- NOTE | 2018-07-31 15:22 | NUR ---
NG PLACED PT TLOERATED WELL CONFIRMED ASCUL AND SUCTION
--- NOTE | 2018-07-31 15:25 | NUR ---
break coverage: assumed care of pt on behalf or primary RN Marcus for lunch break. pt is currently intubated at 70% O2, A/C: 18, Tidal Volume: 500, PEEP: 5. pt has NG tube to L nare to low contiknuous suction and temp probe atkins in place. pt has propofol gtt running for sedation. no family at bedside.
[2018-07-31] MEDS: methylPREDNISolone SOD SUCC 125 MG/2 ML IVPush SCH ×2 (15:30→21:09)
[2018-07-31] MEDS ORDERED: BISACODYL 10 MG SUPP PR PRN ×2 (15:30→17:30)
[2018-07-31] MEDS ORDERED: ACETAMINOPHEN 325 MG TABLET PO PRN (15:30)
[2018-07-31] MEDS ORDERED: LORazepam 2 MG/ML, 1ML IVPush PRN (15:30)
[2018-07-31] MEDS ORDERED: POLYETHYLENE GLYCOL 17 GM PACKET PO PRN (15:30)
[2018-07-31] MEDS ORDERED: ONDANSETRON ODT 4 MG PO PRN (15:30)
[2018-07-31] MEDS ORDERED: ONDANSETRON 2MG/ML, 2ML IVPush PRN (15:30)
[2018-07-31] MEDS ORDERED: ACETAMINOPHEN 650 MG SUPP PR PRN (15:30)
[2018-07-31] MEDS ORDERED: FENTANYL PF 100 MCG/2ML IVPush PRN (15:30)
[2018-07-31] MEDS ORDERED: OXYcodone IR 5MG TABLET PO PRN (15:30)
--- NOTE | 2018-07-31 15:34 | NUR ---
break coverage: Kim RT at bedside to adjust tube position. pt 8.0 ET tube positioned at 24cm @ lip. suctioning done at bedside
[2018-07-31] MEDS ORDERED: ACETAMINOPHEN 650 MG SUPP ONE (15:37)
--- NOTE | 2018-07-31 15:44 | NUR ---
break coverage: Dr Orta at bedside for evaluation for admit
--- NOTE | 2018-07-31 15:53 | NUR ---
Break coverage: pt dentures (upper and lower) placed in denture cup with water and labeled. Dr Cuello at bedside to collect and sent flu swab
[2018-07-31] MEDS: SODIUM CHLORIDE 0.9% 1,000 ML IV SCH (16:00)
[2018-07-31 16:50] LABS: RAPID INFLUENZA A Negative (Negative); RAPID INFLUENZA B Negative (Negative)
[2018-07-31] MEDS ORDERED: PROPOFOL 100 ML IV PRN (17:02)
[2018-07-31] MEDS: ENOXAPARIN 40 MG/0.4 ML SQ SCH (17:08)
[2018-07-31] MEDS: PIPERACILLIN/TAZO/PMX 3.375GM 50 ML IV SCH ×2 (17:08→21:31)
[2018-07-31] MEDS ORDERED: SENNOSIDES 8.8 MG/5 ML ORAL SOL NG PRN (17:30)
[2018-07-31] MEDS ORDERED: PHARMACY MAY ADJ FOR RENAL FX MC SCH (17:30)
[2018-07-31] MEDS ORDERED: LACTULOSE 20 GM/30 ML UDC NG PRN (17:30)
[2018-07-31] MEDS ORDERED: SENNA/DOCUSATE TABLET NG PRN (17:30)
[2018-07-31] MEDS ORDERED: LIDOCAINE-MPF 1%, 2ML ENDO PRN (17:30)
[2018-07-31] MEDS: LINEZOLID PMX 600MG/300ML 300 ML IV SCH (17:36)
[2018-07-31] MEDS: ALBUTEROL/IPRATROPIUM 2.5MG/0.5MG, 3 ML INLINE SCH ×2 (18:23→22:07)
[2018-07-31] MEDS ORDERED: FAMOTIDINE 20 MG/2 ML IVPush SCH (21:00)
[2018-07-31] MEDS: FAMOTIDINE 20 MG/2 ML IV SCH (21:09)
[2018-08-01] MEDS: morphine SULFATE 10 MG/ML, 1ML IVPush PRN ×2 (00:09→04:47)
[2018-08-01] MEDS: ALBUTEROL/IPRATROPIUM 2.5MG/0.5MG, 3 ML INLINE SCH ×3 (02:49→09:30)
[2018-08-01] MEDS: methylPREDNISolone SOD SUCC 125 MG/2 ML IVPush SCH ×4 (03:39→20:36)
[2018-08-01] MEDS: PIPERACILLIN/TAZO/PMX 3.375GM 50 ML IV SCH ×4 (03:39→22:01)
[2018-08-01 04:00] VITALS: BP 98/55
[2018-08-01 04:27] LABS: BASOPHILS # (AUTO) 0.01 x10^3/uL (0-0.1); BASOPHILS % (AUTO) 0 % (0-1); EOSINOPHILS # (AUTO) 0.11 x10^3/uL (0-0.4); EOSINOPHILS % (AUTO) 1 % (1-7); LYMPHOCYTES # (AUTO) 0.29 x10^3/uL (1-3.4); LYMPHOCYTES % (AUTO) 4 % (22-44); MD NO; MEAN CORPUSCULAR HEMOGLOBIN 30.8 pg (27.5-34.5); MEAN CORPUSCULAR HGB CONC 33.9 g/dL (33.2-36.2); MEAN CORPUSCULAR VOLUME 90.8 fL (81-97); MEAN PLATELET VOLUME 8.6 fL (7.4-10.4); MONOCYTES # (AUTO) 0.26 x10^3/uL (0.2-0.8); MONOCYTES % (AUTO) 3 % (2-9); NEUTROPHILS # (AUTO) 7.63 x10^3/uL (1.8-6.8); NEUTROPHILS % (AUTO) 92 % (42-75); PLATELET COUNT 166 x10^3/uL (130-400); RED BLOOD COUNT 4.37 x10^6/uL (4.38-5.82); RED CELL DISTRIBUTION WIDTH 15.4 % (9.4-14.8)
[2018-08-01] MEDS: SODIUM CHLORIDE 0.9% 1,000 ML IV SCH ×4 (04:33→22:05)
[2018-08-01] MEDS: LINEZOLID PMX 600MG/300ML 300 ML IV SCH ×2 (04:33→17:03)
[2018-08-01 04:40] LABS: ALBUMIN 2.8 g/dL (3.4-5.0); ANION GAP 6 mmol/L (5-15); CALCIUM 7.9 mg/dL (8.5-10.1); CHLORIDE 102 mmol/L (98-107)
[2018-08-01 04:43] LABS: CREATININE 0.94 mg/dL (0.7-1.3)
[2018-08-01 04:44] LABS: ALANINE AMINOTRANSFERASE 22 U/L (12-78); ALKALINE PHOSPHATASE 57 U/L (45-117); BILIRUBIN,TOTAL 0.6 mg/dL (0.2-1.0); TOTAL PROTEIN 5.9 g/dL (6.4-8.2)
[2018-08-01] MEDS ORDERED: INSULIN LISPRO 100 UNITS/ML, PEN SQ-INSULIN SCH ×2 (07:30→09:00)
[2018-08-01] MEDS: FAMOTIDINE 20 MG/2 ML IV SCH (08:58)
[2018-08-01] MEDS: SENNA/DOCUSATE TABLET PO SCH (08:59)
--- NOTE | 2018-08-01 11:49 | NUR ---
TF recommendations as needed: Promote full goal on/off propofol: 60 ml/hr
[2018-08-01] MEDS ORDERED: ALBUTEROL/IPRATROPIUM 2.5MG/0.5MG, 3 ML NPPB PRN (12:00)
[2018-08-01] MEDS: ALBUTEROL/IPRATROPIUM 2.5MG/0.5MG, 3 ML NPPB SCH ×2 (14:59→21:04)
[2018-08-01] MEDS: ENOXAPARIN 40 MG/0.4 ML SQ SCH ×2 (15:30→16:04)
[2018-08-01] MEDS: INSULIN LISPRO 100 UNITS/ML, PEN SQ-INSULIN SCH ×2 (16:00→20:35)
[2018-08-02 04:00] VITALS: BP 149/80
[2018-08-02 04:13] LABS: MEAN CORPUSCULAR HEMOGLOBIN 31.1 pg (27.5-34.5); MEAN CORPUSCULAR HGB CONC 34.1 g/dL (33.2-36.2); MEAN PLATELET VOLUME 8.5 fL (7.4-10.4); PLATELET COUNT 167 x10^3/uL (130-400); RED BLOOD COUNT 3.85 x10^6/uL (4.38-5.82); RED CELL DISTRIBUTION WIDTH 15.1 % (9.4-14.8)
[2018-08-02] MEDS: PIPERACILLIN/TAZO/PMX 3.375GM 50 ML IV SCH ×4 (04:13→21:47)
[2018-08-02] MEDS: methylPREDNISolone SOD SUCC 125 MG/2 ML IVPush SCH ×2 (04:21→09:32)
[2018-08-02 04:26] LABS: MD YES
[2018-08-02 04:27] LABS: ANION GAP 6 mmol/L (5-15); CALCIUM 7.4 mg/dL (8.5-10.1); CHLORIDE 106 mmol/L (98-107)
[2018-08-02 04:28] LABS: <PLATELET ESTIMATE> ADEQUATE; <PLT MORPHOLOGY> NORMAL PLT MORPH; <RBC MORPHOLOGY> NORMAL; BAND#(MANUAL) 0.54 x10^3/uL; BANDS%(MANUAL) 4 % (0-7); CREATININE 0.68 mg/dL (0.7-1.3); LYMPH#(MANUAL) 0.27 x10^3/uL (1-3.4); LYMPHS% (MANUAL) 2 % (22-44); MONOS#(MANUAL) 0.27 x10^3/uL (0.3-2.7); MONOS% (MANUAL) 2 % (2-9); SEG#(MANUAL) 12.33 x10^3/uL (1.8-6.8); SEGS% (MANUAL) 92 % (42-75)
[2018-08-02] MEDS: LINEZOLID PMX 600MG/300ML 300 ML IV SCH ×2 (04:54→16:19)
[2018-08-02] MEDS: ALBUTEROL/IPRATROPIUM 2.5MG/0.5MG, 3 ML NPPB SCH ×4 (06:44→20:50)
[2018-08-02 06:50] LABS: TROPONIN I 0.024 ng/mL (0.000-0.045)
[2018-08-02] MEDS: INSULIN LISPRO 100 UNITS/ML, PEN SQ-INSULIN SCH ×4 (07:00→19:23)
[2018-08-02] MEDS: SENNA/DOCUSATE TABLET PO SCH ×3 (09:00→17:45)
[2018-08-02] MEDS: SODIUM CHLORIDE 0.9% 1,000 ML IV SCH (09:00)
[2018-08-02] MEDS ORDERED: FAMOTIDINE 20 MG/2 ML IV SCH (09:00)
[2018-08-02] MEDS: GUAIFENESIN/COD200MG-20MG/10ML LIQUID PO PRN ×2 (13:00→19:03)
[2018-08-02 14:58] VITALS: BP 138/60
[2018-08-02] MEDS: ENOXAPARIN 40 MG/0.4 ML SQ SCH (15:30)
[2018-08-02] MEDS: methylPREDNISolone SOD SUCC 40 MG/ML IVPush SCH ×2 (15:34→21:47)
[2018-08-02] MEDS: FAMOTIDINE 20 MG TABLET PO SCH (19:22)
[2018-08-02 20:01] VITALS: BP 151/75
[2018-08-03 00:18] VITALS: BP 157/77
[2018-08-03] MEDS: LINEZOLID PMX 600MG/300ML 300 ML IV SCH ×2 (03:46→16:40)
[2018-08-03] MEDS: methylPREDNISolone SOD SUCC 40 MG/ML IVPush SCH ×4 (03:46→21:35)
[2018-08-03] MEDS: GUAIFENESIN/COD200MG-20MG/10ML LIQUID PO PRN ×3 (03:52→22:07)
[2018-08-03 04:38] LABS: BASOPHILS # (AUTO) 0.01 x10^3/uL (0-0.1); BASOPHILS % (AUTO) 0 % (0-1); EOSINOPHILS % (AUTO) 0 % (1-7); LYMPHOCYTES # (AUTO) 0.27 x10^3/uL (1-3.4); LYMPHOCYTES % (AUTO) 2 % (22-44); MD NO; MEAN CORPUSCULAR HEMOGLOBIN 30.7 pg (27.5-34.5); MEAN CORPUSCULAR HGB CONC 33.7 g/dL (33.2-36.2); MEAN PLATELET VOLUME 8.3 fL (7.4-10.4); MONOCYTES # (AUTO) 0.63 x10^3/uL (0.2-0.8); MONOCYTES % (AUTO) 4 % (2-9); NEUTROPHILS # (AUTO) 13.32 x10^3/uL (1.8-6.8); NEUTROPHILS % (AUTO) 94 % (42-75); PLATELET COUNT 172 x10^3/uL (130-400); RED CELL DISTRIBUTION WIDTH 15.7 % (9.4-14.8)
[2018-08-03 04:50] LABS: ALBUMIN 2.6 g/dL (3.4-5.0); ANION GAP 4 mmol/L (5-15); CALCIUM 7.6 mg/dL (8.5-10.1); CHLORIDE 104 mmol/L (98-107)
[2018-08-03 04:53] LABS: ALANINE AMINOTRANSFERASE 24 U/L (12-78); ALKALINE PHOSPHATASE 52 U/L (45-117); BILIRUBIN,TOTAL 0.5 mg/dL (0.2-1.0); CREATININE 0.69 mg/dL (0.7-1.3); TOTAL PROTEIN 5.6 g/dL (6.4-8.2)
[2018-08-03] MEDS: PIPERACILLIN/TAZO/PMX 3.375GM 50 ML IV SCH ×3 (05:54→21:35)
[2018-08-03 06:48] VITALS: BP 161/75
[2018-08-03] MEDS: INSULIN LISPRO 100 UNITS/ML, PEN SQ-INSULIN SCH ×2 (07:00→11:00)
[2018-08-03] MEDS: ALBUTEROL/IPRATROPIUM 2.5MG/0.5MG, 3 ML NPPB SCH ×4 (07:45→21:26)
[2018-08-03] MEDS: FAMOTIDINE 20 MG TABLET PO SCH ×2 (08:43→21:04)
[2018-08-03 14:13] VITALS: BP 128/69
[2018-08-03] MEDS: ENOXAPARIN 40 MG/0.4 ML SQ SCH (15:30)
[2018-08-03] MEDS: LIDODERM 5% PATCH TD SCH (20:00)
[2018-08-03 21:01] VITALS: BP 156/70
[2018-08-04 02:23] VITALS: BP 141/66
[2018-08-04] MEDS: LIDODERM REMOVE PATCH NOTE XX SCH ×2 (03:16→21:10)
[2018-08-04] MEDS: methylPREDNISolone SOD SUCC 40 MG/ML IVPush SCH ×4 (03:46→23:16)
[2018-08-04] MEDS: PIPERACILLIN/TAZO/PMX 3.375GM 50 ML IV SCH ×4 (03:47→23:16)
[2018-08-04 05:03] LABS: BASOPHILS % (AUTO) 0 % (0-1); EOSINOPHILS # (AUTO) 0.22 x10^3/uL (0-0.4); EOSINOPHILS % (AUTO) 2 % (1-7); LYMPHOCYTES % (AUTO) 2 % (22-44); MD NO; MEAN CORPUSCULAR HEMOGLOBIN 30.7 pg (27.5-34.5); MEAN CORPUSCULAR HGB CONC 33.9 g/dL (33.2-36.2); MEAN CORPUSCULAR VOLUME 90.8 fL (81-97); MEAN PLATELET VOLUME 8.6 fL (7.4-10.4); MONOCYTES # (AUTO) 0.31 x10^3/uL (0.2-0.8); MONOCYTES % (AUTO) 3 % (2-9); NEUTROPHILS # (AUTO) 8.65 x10^3/uL (1.8-6.8); NEUTROPHILS % (AUTO) 92 % (42-75); PLATELET COUNT 164 x10^3/uL (130-400); RED BLOOD COUNT 3.64 x10^6/uL (4.38-5.82); RED CELL DISTRIBUTION WIDTH 15.5 % (9.4-14.8)
[2018-08-04 05:09] LABS: ANION GAP 6 mmol/L (5-15); CALCIUM 7.5 mg/dL (8.5-10.1); CHLORIDE 102 mmol/L (98-107); CREATININE 0.75 mg/dL (0.7-1.3)
[2018-08-04] MEDS: ALBUTEROL/IPRATROPIUM 2.5MG/0.5MG, 3 ML NPPB SCH ×4 (06:55→19:52)
[2018-08-04 07:47] VITALS: BP 145/67
[2018-08-04] MEDS: LINEZOLID PMX 600MG/300ML 300 ML IV SCH ×2 (08:28→20:25)
[2018-08-04] MEDS: FAMOTIDINE 20 MG TABLET PO SCH ×2 (08:29→20:25)
[2018-08-04] MEDS: SENNA/DOCUSATE TABLET PO SCH (08:29)
[2018-08-04] MEDS: KETOROLAC 30 MG/1 ML IVPush PRN ×2 (11:03→20:26)
[2018-08-04 14:13] VITALS: BP 138/76
[2018-08-04] MEDS: ENOXAPARIN 40 MG/0.4 ML SQ SCH (15:30)
[2018-08-04] MEDS: LIDODERM 5% PATCH TD SCH (19:56)
[2018-08-04 20:34] VITALS: BP 142/78
[2018-08-05 03:08] VITALS: BP 143/63
[2018-08-05] MEDS: PIPERACILLIN/TAZO/PMX 3.375GM 50 ML IV SCH ×3 (05:11→17:18)
[2018-08-05] MEDS: methylPREDNISolone SOD SUCC 40 MG/ML IVPush SCH ×4 (05:11→23:27)
[2018-08-05] MEDS: ALBUTEROL/IPRATROPIUM 2.5MG/0.5MG, 3 ML NPPB SCH ×4 (07:00→21:06)
[2018-08-05] MEDS: FAMOTIDINE 20 MG TABLET PO SCH ×2 (08:19→20:04)
[2018-08-05] MEDS: SENNA/DOCUSATE TABLET PO SCH (08:19)
[2018-08-05] MEDS: LINEZOLID PMX 600MG/300ML 300 ML IV SCH ×2 (08:19→21:03)
[2018-08-05 10:40] VITALS: BP 124/58
[2018-08-05] MEDS ORDERED: PRED10TA14 PO ×2 (11:28)
[2018-08-05] MEDS ORDERED: ALPR0.25 PO (11:28)
[2018-08-05 13:25] VITALS: BP 124/62
[2018-08-05] MEDS: ENOXAPARIN 40 MG/0.4 ML SQ SCH (15:30)
[2018-08-05 16:45] VITALS: BP 151/79
[2018-08-05 19:08] VITALS: BP 148/74
[2018-08-05] MEDS: LIDODERM 5% PATCH TD SCH (19:26)
[2018-08-05] MEDS: KETOROLAC 30 MG/1 ML IVPush PRN (20:05)
[2018-08-06] MEDS: LIDODERM REMOVE PATCH NOTE XX SCH (00:13)
[2018-08-06 01:50] VITALS: BP 154/82
[2018-08-06] MEDS: PIPERACILLIN/TAZO/PMX 3.375GM 50 ML IV SCH (01:55)
[2018-08-06] MEDS: methylPREDNISolone SOD SUCC 40 MG/ML IVPush SCH (04:50)
[2018-08-06] MEDS: ALBUTEROL/IPRATROPIUM 2.5MG/0.5MG, 3 ML NPPB SCH ×3 (07:00→14:55)
[2018-08-06 08:40] VITALS: BP 147/85
[2018-08-06] MEDS ORDERED: methylPREDNISolone SOD SUCC 40 MG/ML IVPush SCH (09:00)
[2018-08-06] MEDS: SENNA/DOCUSATE TABLET PO SCH ×2 (09:00→10:13)
[2018-08-06] MEDS: FAMOTIDINE 20 MG TABLET PO SCH (10:13)
[2018-08-06] MEDS: KETOROLAC 30 MG/1 ML IVPush PRN ×2 (10:22→16:52)
[2018-08-06 14:10] VITALS: BP 137/67
[2018-08-06] MEDS: ENOXAPARIN 40 MG/0.4 ML SQ SCH (15:30)
== END 2018-08-06 16:15 | disposition home health service (06) | DRG 208 ==
LOC: ED 14:36 → EDIP 15:12 → CCU 16:38 → 3NW 08-02 12:23
PROVIDERS: ADMIT Internal Medicine; ATTEND Hospitalist
PROC: 5A1935Z Respiratory Ventilation, Less than 24 Consecutive Hours (ICD-10-PCS; principal; 2018-07-31)
PROC: 0BH17EZ Insertion of Endotracheal Airway into Trachea, Via Natural or Artificial Opening (ICD-10-PCS; 2018-07-31)
DX: J96.21 Acute and chronic respiratory failure with hypoxia (principal); G93.41 Metabolic encephalopathy; J44.1 Chronic obstructive pulmonary disease with (acute) exacerbation; R65.10 Systemic inflammatory response syndrome (SIRS) of non-infectious origin without acute organ dysfunction; E87.1 Hypo-osmolality and hyponatremia; J44.0 Chronic obstructive pulmonary disease with (acute) lower respiratory infection; M48.56XA Collapsed vertebra, not elsewhere classified, lumbar region, initial encounter for fracture; Z99.11 Dependence on respirator [ventilator] status; D64.9 Anemia, unspecified; E78.5 Hyperlipidemia, unspecified; F41.9 Anxiety disorder, unspecified; I10 Essential (primary) hypertension; I25.10 Atherosclerotic heart disease of native coronary artery without angina pectoris; I35.1 Nonrheumatic aortic (valve) insufficiency; I37.1 Nonrheumatic pulmonary valve insufficiency; M95.4 Acquired deformity of chest and rib; J20.9 Acute bronchitis, unspecified; J96.22 Acute and chronic respiratory failure with hypercapnia; K21.9 Gastro-esophageal reflux disease without esophagitis; Z99.81 Dependence on supplemental oxygen; I25.2 Old myocardial infarction; Z82.49 Family history of ischemic heart disease and other diseases of the circulatory system; Z87.891 Personal history of nicotine dependence; Z95.5 Presence of coronary angioplasty implant and graft; Z79.82 Long term (current) use of aspirin
CPT/HCPCS: 36415; 36600; 71045; 80048; 80053; 82803; 82962; 83605; 83690; 83735; 83880; 84100; 84478; 84484; 85025; 85610; 85730; 87040; 87070; 87081; 87205; 87400; 93005; 94002; 94003; 94150; 94640; 96374; 96375; 99291; G0378; J1650; J1885; J2020; J2405; J2543; J2704; J3010; J3475; J7613; J7620; J0330; J2060; J2270; J2920; J2930; J3490; J7030

== ENCOUNTER 2018-08-06 20:03 | Inpatient (IN) | payer MEDICARE ==
[~2018-08-06] VITALS: Ht 170.2 cm; Wt 53.3 kg
[~2018-08-06 20:03] MED LIST changes: +ALPR0.25 PO; -ETOMIDATE 40 MG/20 ML ONE; +PRED10TA14 PO; -PROPOFOL 10 MG/ML, 100ML IV ONE; -SUCCINYLCHOLINE 20 MG/ML, 10ML ONE
--- NOTE | 2018-08-06 20:19 | NUR ---
THIS IS A 77 YO MALE WHO PRESENTS TO THE ER C/O COPD EXACERBATION AFTER WALKING FROM CAR TO HOUSE. PT WAS DC'D FROM [facility] AT [place] AFTER A 5 DAY HOSPITAL STAY PER EMS. PT AO X 4. PT BREATHING RAPIDLY, RR 27, USING ACCESSORY MUSCLES AND RETRACTING. WHEEZING T/O LUNGS. PT WAS 70% ON HIS USUAL 4LNC OF OXYGEN. SKIN FLUSHED AND DIAPHORETIC. PT AO X 4. RT FAMILIAR WITH PT AND PT PLACED ON BIPAP AT 12 & 5 AT 40% OXYGEN. PT'S SPO2 IS 95%. PER THEY ARE WORKING ON PAPERWORK FOR HOSPICE CARE. MALIK CHENEY WAS AT BEDSIDE FOR EVAL. PT ON CONT BP, CARDIAC AND O2 MONITORS. AND SISTER IN LAW NOW AT BEDSIDE. WILL CONT TO MONITOR PT.
[2018-08-06] MEDS ORDERED: ALBUTEROL SULFATE 2.5 MG/3 ML ONE (20:24)
[2018-08-06] MEDS ORDERED: ALBUTEROL/IPRATROPIUM 2.5MG/0.5MG, 3 ML ONE (20:24)
[2018-08-06] MEDS ORDERED: methylPREDNISolone SOD SUCC 125 MG/2 ML ONE (20:28)
[2018-08-06] MEDS ORDERED: LORazepam 2 MG/ML, 1ML ONE (20:29)
[2018-08-06] MEDS ORDERED: LORazepam 2 MG/ML, 1ML IVP ONE (20:30)
[2018-08-06] MEDS ORDERED: methylPREDNISolone SOD SUCC 125 MG/2 ML IVP ONE (20:30)
[2018-08-06] MEDS ORDERED: SODIUM CHLORIDE FLUSH 10ML SYR IVF ONE (20:30)
[2018-08-06] MEDS ORDERED: ALBUTEROL 0.5%, 20ML NPPB SCH (20:30)
--- NOTE | 2018-08-06 20:37 | NUR ---
PT MEDICATED ORDERED FOR ANXIETY AND HAS BEEN ON BI-PAP SINCE ARRIVAL. PT'S RR NOW 20 INSTEAD OF 27, HR DECREASED FROM 130'S TO 120'S. 95% SPO2. PT ON CONT BP, CARDIAC AND O2 MONITORS. CALL LIGHT WITHIN REACH. WILL CONT TO MONITOR PT.
--- NOTE | 2018-08-06 20:41 | NUR ---
Lab calls and notes that they are going to have to redraw chem panel as well as CBC
[2018-08-06] MEDS ORDERED: SODIUM CHLORIDE 0.9% 1,000 ML IV ONE (20:53)
[2018-08-06] MEDS ORDERED: CEFTRIAXONE PMX 1GM/50ML 50 ML IVPB ONE (21:00)
[2018-08-06] MEDS ORDERED: CEFTRIAXONE PMX 1GM/50ML 50 ML ONE (21:00)
[2018-08-06] MEDS ORDERED: AZITHROMYCIN 500 MG in SODIUM CHLORIDE 0.9% 250 ML IVPB ONE (21:00)
--- NOTE | 2018-08-06 21:03 | NUR ---
REPORT TO DENEEN CARVALHO WHO ASSUMED CARE OF PT.
--- NOTE | 2018-08-06 21:09 | NUR ---
ASSUMED CARE FOR THIS PT. PT REMAINS ON BI PAP AND FAMILY AT BEDSIDE.
[2018-08-06 21:15] LABS: BASOPHILS # (AUTO) 0.04 x10^3/uL (0-0.1); BASOPHILS % (AUTO) 0 % (0-1); EOSINOPHILS % (AUTO) 0 % (1-7); LYMPHOCYTES # (AUTO) 0.66 x10^3/uL (1-3.4); LYMPHOCYTES % (AUTO) 6 % (22-44); MD SCAN; MEAN CORPUSCULAR HEMOGLOBIN 30.4 pg (27.5-34.5); MEAN CORPUSCULAR HGB CONC 33.2 g/dL (33.2-36.2); MEAN CORPUSCULAR VOLUME 91.5 fL (81-97); MEAN PLATELET VOLUME 8.4 fL (7.4-10.4); MONOCYTES # (AUTO) 0.28 x10^3/uL (0.2-0.8); MONOCYTES % (AUTO) 3 % (2-9); NEUTROPHILS # (AUTO) 10.02 x10^3/uL (1.8-6.8); NEUTROPHILS % (AUTO) 91 % (42-75); PLATELET COUNT 282 x10^3/uL (130-400); RED BLOOD COUNT 4.76 x10^6/uL (4.38-5.82); RED CELL DISTRIBUTION WIDTH 15.4 % (9.4-14.8)
[2018-08-06 21:35] LABS: ALANINE AMINOTRANSFERASE 122 U/L (12-78); ALBUMIN 2.6 g/dL (3.4-5.0); ANION GAP 8 mmol/L (5-15); CALCIUM 8.2 mg/dL (8.5-10.1); CHLORIDE 102 mmol/L (98-107); CREATININE 0.77 mg/dL (0.7-1.3)
[2018-08-06 21:39] LABS: ALKALINE PHOSPHATASE 101 U/L (45-117); BILIRUBIN,TOTAL 0.4 mg/dL (0.2-1.0); TOTAL PROTEIN 6.3 g/dL (6.4-8.2); TROPONIN I 0.058 ng/mL (0.000-0.045)
--- NOTE | 2018-08-06 21:47 | NUR ---
PT WITH PULSE OX IN THE LOW 80'S HR OVER 150 AND RESP RATE OVER 40 AFTER BLOWING HIS NOSE AND TAKING OFF O2 FOR LESS THAN 30 SEC. PT DID RECOVER BACK TO BASE LINE AFTER O2 WAS REPLACED AND 5 MIN HAD PASSED.
[2018-08-06] MEDS ORDERED: DILTIAZEM 5 MG/ML, 5ML ONE (22:07)
[2018-08-06] MEDS ORDERED: DILTIAZEM 125 MG in DEXTROSE 5% 100 ML IV SCH (22:08)
--- NOTE | 2018-08-06 22:14 | NUR ---
PT HR UP TO 170 - 190. ERP AWARE AND PT MEDICATED WITH HR NOW AT 135. IV DRIP TO FOLLOW AWAITING FROM PHARMACY.
[2018-08-06] MEDS ORDERED: DILTIAZEM 5 MG/ML, 5ML IV ONE (22:30)
--- NOTE | 2018-08-06 22:54 | NUR ---
REPORT CALLED TO FLOOR AND PT TRANSPORTED.
[2018-08-06 23:03] VITALS: BP 105/69
[2018-08-06 23:08] VITALS: BP 105/69
[2018-08-07] MEDS ORDERED: ACETAMINOPHEN 325 MG TABLET PO PRN
[2018-08-07] MEDS ORDERED: ONDANSETRON ODT 4 MG PO PRN
[2018-08-07] MEDS ORDERED: ONDANSETRON 2MG/ML, 2ML IVPush PRN
[2018-08-07] MEDS ORDERED: ALBUTEROL SULFATE 2.5 MG/3 ML HHN PRN
[2018-08-07] MEDS ORDERED: VANCOMYCIN PER PHARMACY MC PRN
[2018-08-07] MEDS: SODIUM CHLORIDE 0.9% 1,000 ML IV SCH ×2 (00:08→14:33)
[2018-08-07] MEDS ORDERED: ALBUTEROL/IPRATROPIUM 2.5MG/0.5MG, 3 ML NPPB PRN (00:30)
[2018-08-07] MEDS ORDERED: PHARMACOKINETIC CONSULTATION MC ONE (00:30)
[2018-08-07] MEDS ORDERED: PHARMACOKINETIC MONITORING MC PRN (00:30)
[2018-08-07] MEDS ORDERED: VANCOMYCIN PMX 1GM/200ML 200 ML IV SCH (00:30)
[2018-08-07] MEDS: PIPERACILLIN/TAZO/PMX 3.375GM 50 ML IV SCH ×3 (00:30→14:30)
[2018-08-07] MEDS: methylPREDNISolone SOD SUCC 125 MG/2 ML IVPush SCH ×3 (00:37→14:30)
[2018-08-07 01:16] LABS: TROPONIN I 0.132 ng/mL (0.000-0.045)
[2018-08-07 01:20] VITALS: BP 99/61
[2018-08-07] MEDS: ALBUTEROL/IPRATROPIUM 2.5MG/0.5MG, 3 ML NPPB SCH ×4 (03:23→15:20)
[2018-08-07 05:21] LABS: CHLORIDE 104 mmol/L (98-107); MEAN CORPUSCULAR HEMOGLOBIN 30.7 pg (27.5-34.5); MEAN CORPUSCULAR VOLUME 90.5 fL (81-97); MEAN PLATELET VOLUME 7.8 fL (7.4-10.4); PLATELET COUNT 167 x10^3/uL (130-400); RED BLOOD COUNT 3.74 x10^6/uL (4.38-5.82); RED CELL DISTRIBUTION WIDTH 15.4 % (9.4-14.8)
[2018-08-07 05:28] LABS: ALANINE AMINOTRANSFERASE 101 U/L (12-78); ALBUMIN 2.2 g/dL (3.4-5.0); ALKALINE PHOSPHATASE 90 U/L (45-117); ANION GAP 5 mmol/L (5-15); BILIRUBIN,TOTAL 0.3 mg/dL (0.2-1.0); CALCIUM 7.5 mg/dL (8.5-10.1); TOTAL PROTEIN 5.4 g/dL (6.4-8.2)
[2018-08-07 05:30] LABS: TROPONIN I 0.108 ng/mL (0.000-0.045)
[2018-08-07 05:46] LABS: BASOPHILS % (AUTO) 0 % (0-1); EOSINOPHILS # (AUTO) 0.13 x10^3/uL (0-0.4); EOSINOPHILS % (AUTO) 2 % (1-7); LYMPHOCYTES # (AUTO) 0.15 x10^3/uL (1-3.4); LYMPHOCYTES % (AUTO) 2 % (22-44); MD SCAN; MONOCYTES # (AUTO) 0.06 x10^3/uL (0.2-0.8); MONOCYTES % (AUTO) 1 % (2-9); NEUTROPHILS # (AUTO) 6.66 x10^3/uL (1.8-6.8); NEUTROPHILS % (AUTO) 95 % (42-75)
[2018-08-07] MEDS: DILTIAZEM 125 MG in SODIUM CHLORIDE 0.9% 100 ML IV SCH ×2 (06:04)
[2018-08-07] MEDS: LORazepam 2 MG/ML, 1ML IVPush PRN ×2 (06:07→14:30)
[2018-08-07] MEDS ORDERED: ALBUTEROL/IPRATROPIUM 2.5MG/0.5MG, 3 ML NPPB SCH (07:00)
[2018-08-07 07:51] VITALS: BP 134/51
[2018-08-07] MEDS ORDERED: ASPIRIN 81 MG TABLET CHEW PO SCH (09:00)
[2018-08-07] MEDS ORDERED: BUSPIRONE 5 MG TABLET PO SCH (09:00)
[2018-08-07 13:08] VITALS: BP 114/57
[2018-08-07] MEDS ORDERED: ATORVASTATIN 40 MG TABLET PO SCH (21:00)
== END 2018-08-07 15:59 | disposition hospice, home (50) | DRG 308 ==
LOC: ED 21:30 → EDIP 22:10 → 5SO 22:54
PROVIDERS: ADMIT Hospitalist; ATTEND Hospitalist
PROC: 5A09357 Assistance with Respiratory Ventilation, Less than 24 Consecutive Hours, Continuous Positive Airway Pressure (ICD-10-PCS; principal; 2018-08-06)
DX: I48.91 Unspecified atrial fibrillation (principal); J15.9 Unspecified bacterial pneumonia; J96.21 Acute and chronic respiratory failure with hypoxia; E43 Unspecified severe protein-calorie malnutrition; J96.22 Acute and chronic respiratory failure with hypercapnia; D68.69 Other thrombophilia; E87.2 Acidosis; J44.0 Chronic obstructive pulmonary disease with (acute) lower respiratory infection; J44.1 Chronic obstructive pulmonary disease with (acute) exacerbation; Z68.1 Body mass index [BMI] 19.9 or less, adult; E86.0 Dehydration; I10 Essential (primary) hypertension; I25.10 Atherosclerotic heart disease of native coronary artery without angina pectoris; Y95 Nosocomial condition; Z51.5 Encounter for palliative care; Z66 Do not resuscitate; I25.2 Old myocardial infarction; Z99.81 Dependence on supplemental oxygen; Z90.89 Acquired absence of other organs
CPT/HCPCS: 36415; 36600; 71045; 80053; 82803; 83605; 83735; 83880; 84100; 84145; 84484; 85025; 87040; 93005; 94640; 94660; 96365; 96366; 96368; 96375; 99291; G0378; J0456; J0696; J2543; J3370; J7613; J7620; J2060; J2930; J7030; J7050

== ENCOUNTER 2018-08-07 14:48 | Inpatient (IN) | payer OTHER ==
[~2018-08-07] VITALS: Ht 170.2 cm; Wt 72.7 kg
[2018-08-07] MEDS ORDERED: SODIUM CHLORIDE 0.9% 1,000 ML IV SCH (16:44)
[2018-08-07] MEDS ORDERED: ATROPINE OPHTH SOLN 1%, 5ML BC PRN (17:00)
[2018-08-07] MEDS ORDERED: MORPHINE SULFATE 4 MG/ML, 1ML IVPush PRN ×2 (17:00)
[2018-08-07] MEDS ORDERED: PLEASE ENTER HEIGHT AND WEIGHT MC SCH (17:00)
[2018-08-07] MEDS ORDERED: ONDANSETRON 2MG/ML, 2ML IVPush PRN (17:00)
[2018-08-07] MEDS: LORazepam 2 MG/ML, 1ML IVPush PRN (17:27)
[2018-08-07] MEDS: SCOPOLAMINE PATCH, 1.5MG PATCH.TD72 TD SCH (18:18)
[2018-08-08] MEDS: LORazepam 2 MG/ML, 1ML IVPush PRN ×3 (01:21→21:42)
[2018-08-09] MEDS: LORazepam 2 MG/ML, 1ML IVPush PRN ×2 (00:37→05:24)
[2018-08-10] MEDS: SCOPOLAMINE PATCH, 1.5MG PATCH.TD72 TD SCH (18:56)
[2018-08-11] MEDS: LORazepam 2 MG/ML, 1ML IVPush PRN (05:55)
[2018-08-11] MEDS: LORazepam 2 MG/ML, 1ML IVPush SCH ×2 (10:15→17:54)
[2018-08-12] MEDS: LORazepam 2 MG/ML, 1ML IVPush SCH ×3 (00:08→11:43)
== END 2018-08-12 15:36 | disposition expired | DRG 193 ==
LOC: 3NW 16:00
PROVIDERS: ADMIT Internal Medicine; ATTEND Internal Medicine
DX: J18.9 Pneumonia, unspecified organism (principal); J96.20 Acute and chronic respiratory failure, unspecified whether with hypoxia or hypercapnia; I50.32 Chronic diastolic (congestive) heart failure; J44.0 Chronic obstructive pulmonary disease with (acute) lower respiratory infection; E87.2 Acidosis; Z87.891 Personal history of nicotine dependence; E78.5 Hyperlipidemia, unspecified; I11.0 Hypertensive heart disease with heart failure; I25.10 Atherosclerotic heart disease of native coronary artery without angina pectoris; I37.1 Nonrheumatic pulmonary valve insufficiency; I48.91 Unspecified atrial fibrillation; I35.1 Nonrheumatic aortic (valve) insufficiency; R73.9 Hyperglycemia, unspecified; J98.4 Other disorders of lung; Z66 Do not resuscitate; Z95.5 Presence of coronary angioplasty implant and graft; Z99.81 Dependence on supplemental oxygen; Z90.89 Acquired absence of other organs; Z51.5 Encounter for palliative care
CPT/HCPCS: G0378; J2270; J2060; J7030